=== PATIENT | male | born 1960 | race Caucasian/White ===

== ENCOUNTER 2021-02-24 11:32 | Outpatient (CLI) | payer OTHER ==
[~2021-02-24] VITALS: Ht 177.8 cm; Wt 92.2 kg
[2021-02-24 12:33] VITALS: BP 155/102; PULSE 73; TEMP 98.3
[2021-02-24] MEDS ORDERED: HCTZ 25MG TAB25 MG PO (12:35)
[2021-02-24] MEDS ORDERED: FLEXERIL 1010 MG/TAB PO (12:35)
[2021-02-24] MEDS ORDERED: ZESTRIL40 MG PO (12:36)
[2021-02-24] MEDS ORDERED: ZOCOR 40MG40 MG PO (12:36)
[2021-02-24] MEDS ORDERED: MOBIC15 MG PO (12:37)
[2021-02-24 13:07] LABS: BASO # 0.1 K/mm3 (0.0-0.2); BASO % 1.3 % (0.0-2.0); EOS # 0.2 K/mm3 (0.0-0.7); EOS % 2.1 % (0.0-4.0); GRAN # 4.9 K/mm3 (1.4-6.5); GRAN % 65.1 % (42.2-75.2); HEMATOCRIT 40.8 % (42.0-52.0); HEMOGLOBIN 14.4 g/dl (13.5-18.0); LYMPH # 1.4 K/mm3 (1.2-3.4); MEAN CELL VOLUME 84 fl (80.0-100.0); MEAN CORPUSCULAR HEMOGLOBIN 30 pg (27-31); MEAN CORPUSCULAR HGB CONC 35 g/dl (33.0-37.0); MEAN PLATELET VOLUME 10.1 fl (7.4-10.4); MONO # 0.9 K/mm3 (0.1-0.6); MONO % 12.2 % (1.7-9.3); PLATELET COUNT 270 K/mm3 (130-400); RED BLOOD COUNT 4.85 M/mm3 (4.20-5.60)
[2021-02-24 13:14] LABS: INR 1.1 (0.8-3.0); PROTHROMBIN TIME 12.4 SECONDS (9.7-12.8)
[2021-02-24 16:45] VITALS: BP 156/87; PULSE 78
--- NOTE | 2021-02-24 16:46 | NUR ---
DC instructions reviewed with pt, he expresses understanding. Dressing remains clean, dry and intact. He is escorted out to elevator with steady gait with belongings.
== END 2021-02-24 16:40 | disposition home or self-care (01) ==
LOC: COL.CAR 11:32
PROVIDERS: Internal Medicine Interventional Cardiology
DX: I10 Essential (primary) hypertension (principal); E78.5 Hyperlipidemia, unspecified; R53.83 Other fatigue; Z79.899 Other long term (current) drug therapy
CPT/HCPCS: C1764